=== PATIENT | female | born 1955 | race Caucasian/White ===

== ENCOUNTER 2022-12-24 10:04 | Day surgery (SDC) | payer OTHER ==
[~2022-12-24] VITALS: Ht 162.6 cm; Wt 90.7 kg
[2022-12-24] MEDS ORDERED: fentaNYL citrate 0.05 MG/ML VIAL ONE (14:03)
[2022-12-24] MEDS ORDERED: LIDOCAINE 2% 100 MG/5 ML UJET TP ONE (14:04)
[2022-12-24] MEDS ORDERED: fentaNYL citrate 0.05 MG/ML VIAL IVP ONE (14:50)
== END 2022-12-24 15:30 | disposition home or self-care (01) ==
LOC: MOR 10:04 → MMU 10:16 → MOR 15:30
PROVIDERS: ATTEND Internal Medicine Gastroenterology
DX: Z12.11 Encounter for screening for malignant neoplasm of colon (principal); K63.5 Polyp of colon; K57.30 Diverticulosis of large intestine without perforation or abscess without bleeding; Z80.0 Family history of malignant neoplasm of digestive organs; I10 Essential (primary) hypertension; E78.00 Pure hypercholesterolemia, unspecified; E11.9 Type 2 diabetes mellitus without complications; Z98.51 Tubal ligation status; Z79.899 Other long term (current) drug therapy
CPT/HCPCS: 45385; J3010